=== PATIENT | male | born 2000 | race Caucasian/White ===

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

== ENCOUNTER 2021-05-01 10:13 | Emergency (ER) | payer OTHER ==
[~2021-05-01] VITALS: Ht 170.2 cm; Wt 90.4 kg
[~2021-05-01 10:13] MED LIST changes: +METH54TA5
[2021-05-01 10:14] VITALS: BP 156/96
== END 2021-05-01 11:40 | disposition left against medical advice (07) ==
LOC: M ED 10:13
DX: Z53.21 Procedure and treatment not carried out due to patient leaving prior to being seen by health care provider (principal)

== ENCOUNTER → 2022-02-18 | Outpatient (CLI) | payer OTHER | LOC: M WUC 15:29 | PROVIDERS: ATTEND Physician Assistant | DX: M79.641 Pain in right hand (principal); M25.531 Pain in right wrist ==

== ENCOUNTER 2022-08-30 04:36 | Emergency (ER) | payer OTHER, SELFPAY ==
[~2022-08-30] VITALS: Ht 162.6 cm; Wt 76.4 kg
[2022-08-30 07:51] VITALS: BP 129/63
== END 2022-08-30 08:02 | disposition home or self-care (01) ==
LOC: M ED 04:36
DX: J09.X2 Influenza due to identified novel influenza A virus with other respiratory manifestations (principal); F41.9 Anxiety disorder, unspecified; F32.A Depression, unspecified; F90.9 Attention-deficit hyperactivity disorder, unspecified type; Z88.1 Allergy status to other antibiotic agents

== ENCOUNTER 2023-01-15 13:01 | Emergency (ER) | payer MEDICAID, OTHER ==
[~2023-01-15] VITALS: Ht 162.6 cm; Wt 74.1 kg
[2023-01-15] MEDS ORDERED: ONDA4TAB6 PO (14:49)
[2023-01-15 15:10] VITALS: BP 130/61
== END 2023-01-15 15:10 | disposition home or self-care (01) ==
LOC: M ED 13:01
DX: S06.0X0A Concussion without loss of consciousness, initial encounter (principal); W22.8XXA Striking against or struck by other objects, initial encounter; Y92.89 Other specified places as the place of occurrence of the external cause; Y93.69 Activity, other involving other sports and athletics played as a team or group; Y99.8 Other external cause status; F17.200 Nicotine dependence, unspecified, uncomplicated; F12.90 Cannabis use, unspecified, uncomplicated

== ENCOUNTER → 2023-01-28 | Outpatient (REF) | payer OTHER ==
[~2023-01-28] MED LIST changes: +ONDA4TAB6 PO
[2023-01-28 13:37] LABS: BASO % 0.4 % (0.0-1.0); EOS # 0.2 10^3/uL (0.0-0.5); EOS % 2.2 % (0.0-3.0); HEMOGLOBIN 15.3 g/dl (13.5-17.5); LYMPH # 2.8 10^3/uL (1.5-5.0); LYMPH % 35.6 % (24.0-44.0); MEAN CORPUSCULAR HEMOGLOBIN 28.5 pg (27.0-33.0); MEAN CORPUSCULAR HGB CONC 32.6 g/dl (32.0-36.5); MEAN CORPUSCULAR VOLUME 87.5 fl (80.0-96.0); MONO # 0.7 10^3/uL (0.0-0.8); MONO % 9.2 % (2.0-8.0); NEUTROPHILS # 4.1 10^3/uL (1.5-8.5); NEUTROPHILS % 52.1 % (36.0-66.0); PLATELET COUNT, AUTOMATED 182 10^3/uL (150-450); RED BLOOD COUNT 5.37 10^6/uL (4.30-6.10); WHITE BLOOD COUNT 7.8 10^3/uL (4.0-10.0)
[2023-01-28 13:44] LABS: HEMOGLOBIN A1c 4.9 % (4.0-6.0)
[2023-01-28 13:59] LABS: ALBUMIN 4.6 G/DL (3.2-5.2); ALKALINE PHOSPHATASE 56 U/L (46-116); ALT/SGPT 17 U/L (7.0-40); AST/SGOT 17 U/L (<34); BILIRUBIN,TOTAL 1.7 MG/DL (0.3-1.2); BLOOD UREA NITROGEN 14 MG/DL (9-23); CALCIUM LEVEL 9.3 MG/DL (8.5-10.1); CARBON DIOXIDE LEVEL 30 MMOL/L (20-31); CHLORIDE LEVEL 105 MMOL/L (98-107); CHOLESTEROL LEVEL 87 MG/DL (<200); CHOLESTEROL RISK RATIO 3.08 (<5); CREATININE FOR GFR 0.71 MG/DL (0.70-1.30); GLOMERULAR FILTRATION RATE > 60.0 (>60); GLUCOSE, FASTING 86 MG/DL (60-100); HDL CHOLESTEROL 28.2 MG/DL (>40); LDL CHOLESTEROL 39.4 MG/DL (<100); NON-HDL-C 58.8 MG/DL; POTASSIUM SERUM 4.3 MMOL/L (3.5-5.1); SODIUM LEVEL 140 MMOL/L (136-145); TOTAL PROTEIN 7.7 G/DL (5.7-8.2); TRIGLYCERIDES LEVEL 97 MG/DL (<150)
[2023-01-28 14:00] LABS: THYROID STIMULATING HORMONE 0.645 uIU/ML (0.55-4.78); TOTAL 25(OH) VITAMIN D 33.2 NG/ML (20.0-100.0)
== END ==
LOC: M LAB REF 12:28
PROVIDERS: ATTEND Nurse Practitioner Family
DX: Z13.228 Encounter for screening for other metabolic disorders (principal)

== ENCOUNTER → 2023-06-03 | Outpatient (CLI) | payer OTHER | LOC: M WUC 09:36 | PROVIDERS: ATTEND Physician Assistant | DX: S70.01XA Contusion of right hip, initial encounter (principal); S50.01XA Contusion of right elbow, initial encounter; S80.02XA Contusion of left knee, initial encounter; Y93.9 Activity, unspecified; Y92.9 Unspecified place or not applicable ==

== ENCOUNTER → 2025-08-05 | Outpatient (REF) | payer OTHER ==
[~2025-08-05] MED LIST changes: +METH54TA13; -METH54TA5; +ONDA-282 PO; -ONDA4TAB6 PO
== END ==
LOC: M LAB REF 14:41
PROVIDERS: ATTEND Physician Assistant
DX: B34.9 Viral infection, unspecified (principal)